=== PATIENT | female | born 1975 | race Caucasian/White ===

== ENCOUNTER 2025-01-03 16:53 | Observation (INO) | payer OTHER, SELFPAY ==
[2025-01-03 12:38] VITALS: BP 148/84
[2025-01-03 13:06] LABS: Hematocrit 35.3 % (37.0-47.0); Hemoglobin 12.0 g/dL (12.0-16.0); Mean Corp Hgb Conc. 34.0 g/dL (33.0-37.0); Mean Corpuscular Volume 90.1 fL (81.0-99.0); Nucleated Red Blood Cells % 0 %; Platelet Count 222 10^3/uL (130-400); Red Cell Dist. Width 12.4 % (11.5-14.5)
[2025-01-03 13:29] LABS: HCG, Serum Qualitative Screen Negative
[2025-01-03 13:31] LABS: Troponin I 0.050 ng/ml
[2025-01-03 13:39] LABS: ALT (SGPT) 12 U/L (0-35); AST (SGOT) 19 U/L (14-36); Albumin 4.3 g/dl (3.5-5.0); Alkaline Phosphatase 80 U/L (38-126); Blood Urea Nitrogen 10 mg/dl (7-17); Calcium 9.7 mg/dl (8.4-10.2); Carbon Dioxide 26 mmol/L (22-30); Chloride 106 mmol/L (98-107); Glucose 113 mg/dl (70-99); Lipase 77 U/L (23-300); Potassium 4.1 mmol/L (3.5-5.1); Sodium 138 mmol/L (135-145); Total Protein 7.1 g/dl (6.3-8.2); eGFR > 60.00
--- NOTE | 2025-01-03 13:44 | ED.GENMED ---
History of Present Illness
General
Chief Complaint: Abdominal Pain
Source: patient
Exam Limitations: none
Time Seen by Provider: 01/03/25 13:42
History of Present Illness
History of Present Illness:
49yoF with no significant past medical history presenting for evaluation of abdominal pain. Patient reports generalized abdominal pain for the past 2 days. Pain is described as a 'tender and bloated' feeling. Pain is worse with standing and
ambulation. She is also having nausea and chills. She denies any fevers, vomiting, diarrhea, constipation, dysuria, chest pain, shortness of breath. She is currently on her menstrual period. No previous abdominal surgeries.
Phy Exam
General Physical Exam
General Presentation: well appearing and no apparent distress
General Skin: warm and dry
General Habitus: normal
General Mental: alert
ENT Exam
ENT Exam: normocephalic
Cardiovascular Exam
Cardiovascular Exam: regular rate/rhythm
Pulmonary Exam
Pulmonary Exam: lungs clear, no respiratory distress, no rales, no crackles and no rhonchi
Gastrointestinal Exam
Gastrointestinal Exam: soft, non distended and other (+Mild generalized abdominal tenderness, worse in the LLQ. Abdomen soft, non-distended. No rebound or guarding.)
Neurological Exam
Neurological Exam: alert
[place] Coma Scale
Eye Opening: Spontaneous
Verbal Response: Oriented
Motor Response: Obeys Commands
GCS Total Score: 15
Skin Exam
Skin Exam: normal color and warm/dry
Psychiatric Exam
Psychiatric Exam: normal mood/affect
Course
Orders/Labs/Results
Orders:
Orders
01/03/25 12:42
ECG [Electrocardiogram (*1)] Urgent
Reason for Study: Abdominal Pain
Other Reason for Exam: abdominal pain, L arm pain
EKG- Treatment ONCE
Test Result ONCE
01/03/25 12:54
Complete Blood Count/With Diff Urgent
Comprehensive Metabolic Panel Urgent
HCG, Serum Qualitative Screen Urgent
Lipase Urgent
Troponin I Urgent
01/03/25 13:54
CT Abd/pelvis W Iv Cont Urgent
Comment:
Reason For Exam: generalized abd pain, LLQ pain
Cardiac Monitoring- Treatment ONCE
01/03/25 13:55
EKG- Treatment ONCE
01/03/25 14:39
Urinalysis Reflex To Culture Urgent
Date Specimen was Collected: 01/03/25
Time Specimen was Collected: 14:36
Urine Microscopic Reflex Cult Urgent
Urine Culture Urgent
KENDRA Source: U
Specimen Description:
Date Specimen was Collected: 01/03/25
Time Specimen was Collected: 14:36
01/03/25 15:27
Ketorolac [Toradol] 15 mg IV NOW STA
01/03/25 16:00
Electrocardiogram (*1) Urgent
Reason for Study: Abdominal Pain
01/03/25 16:01
Troponin I Urgent
01/03/25 16:25
Admit/Transfer Patient As Directed
Co-Sign Provider:
Level of Care: Observation services
Assign to:: Telemetry
Physician / Group: [facility]
Diagnosis: abdominal pain
Reason for Telemetry: Chest Pain syndromes
Date to Stop Telemetry: 01/05/25
Time to Stop Telemetry: 11:00
01/03/25 16:26
Code Status As Directed
Resuscitation Status: Full Code
PRN Pain Medication Management As Directed
May give lesser potent ordered pain med per pt: Yes
preference::
Protocol:: Medication orders for pain may be administered in a
manner that supports deferring to patient preference
when the pt is:
- Requesting an ordered lesser potent pain medication.
Least to most potent pain medications are defined
as: acetaminophen < NSAID < tramadol < opioids
(morphine, oxycodone, hydromorphone).
- Requesting a lesser dose of the same medication IF
ORDERED.
- Requesting a less intrusive route of administration
if both routes are prescribed by the provider (PO <
IV).
01/05/25 11:00
DC Protocol for Telemetry ONCE
Abnormal Lab Results
01/03/25 01/03/25
12:54 14:39
RBC 3.92 L 10^6/uL
(4.20-5.40)
Hct 35.3 L %
(37.0-47.0)
Lymphocytes % 19.7 L %
(20.5-51.1)
Glucose 113 H mg/dl
(70-99)
Troponin I 0.050 H* ng/ml
Ur Occult Blood Reflex 4+ A
(Negative)
Leukocyte Esterase Rfl 1+ A
(Negative)
Urine Bacteria (Reflex) Few A
(Negative)
01/03/25 12:54
01/03/25 12:54
Vital Signs
Initial and Last Documented VS:
Initial Vital Signs
Temp Pulse Resp BP Pulse Ox
98.5 F 80 16 148/84 98
01/03/25 12:38 01/03/25 12:38 01/03/25 12:38 01/03/25 12:38 01/03/25 12:38
Last Documented Vital Signs
Temp Pulse Resp BP Pulse Ox
98.5 F 67 18 124/90 95
01/03/25 12:38 01/03/25 16:00 01/03/25 16:00 01/03/25 16:00 01/03/25 16:00
MDM/Problems Addressed
Differential Diagnosis Includes:
49yoF here with abd pain x 2 days. Associated with nausea. VSS. She is well appearing in no distress. No signs of peritonitis on abdominal exam. Differential diagnosis includes but is not limited to: colitis, diverticulitis, constipation, kidney
stone, gastritis, biliary colic, nonspecific abdominal pain
Initial ED plan: Workup initiated in triage. White count, renal function, LFTs, lipase normal. HCG negative. Troponin is elevated at 0.05. EKG shows NSR without ischemic changes. She has no chest pain or shortness of breath although does report
intermittent L arm pain. Will check UA, delta troponin/EKG, and CT abdomen.
*Pulse Oximetry
SaO2: 98
Oxygen Mode of Delivery: Room air
Patient hypoxic: no
*EKG
Interpreted by ED Provider?: Yes
EKG Intrepretation Date: 01/03/25
Heart Rate: 73
Rate: normal
Rhythm: sinus
[place]: normal axis
Interval: normal interval
QRS Pattern: normal QRS
Ischemia: no ischemia
*Critical Care Note
Total Time (30-74mins, 75-104mins- exclusive of procedures): Not Applicable
Update Note
Update Note:
CT abdomen is negative for acute findings. 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 UA with 4+ blood consistent with her being on her menstrual period. No overt signs of infection noted. Will admit for further evaluation of
elevated troponin.
ED Attending Note
-
Portions of this chart may have been created with voice recognition software.� Occasional wrong word or��sound alike� substitutions may have occurred due to the inherent limitations of voice recognition software.
Discharge Plan
Departure
Patient Disposition: Admit
Date of Disposition: 01/03/25
Time of Disposition: 15:29
Presentation/result/management discussed w/ accepting MD/DO: Hospitalist
Discharge Problem:
Elevated troponin, Abdominal pain
Prescriptions:
No Action
ibuprofen [Advil] 200 mg Tablet
400 mg PO BIDPRN PRN (Reason: MILD PAIN)
Referrals:
Chandrika Last MD [Family Provider, Internal Medicine]
Interventions
Interventions:
*Risk Screen - Suicide Last Done: 01/03/25 13:58
*Neglect/Abuse Screening Last Done: 01/03/25 13:58
*ED- Fall Risk Assessment Last Done: 01/03/25 13:58
JN-Nydono-Qdkdhxzyvg Assessment Last Done: 01/03/25 13:59
Discharge Date and Time
Print Language: LITHUANIAN
[2025-01-03 13:46] VITALS: BP 136/83
[2025-01-03 13:57] VITALS: BMI 34.5
[2025-01-03 14:47] LABS: Urine Character Clear (Clear)
[2025-01-03 15:00] VITALS: BP 130/77
[2025-01-03 15:00] LABS: Urine Squamous Cell >30 /LPF (Few)
[2025-01-03 15:01] LABS: Urine Red Blood Cell 0-2 /HPF (0-2); Urine White Cell 0-2 /HPF (0-5)
[2025-01-03] MEDS: TORADOL 15 MG IV ×2 (15:43→21:59)
[2025-01-03 16:00] VITALS: BP 124/90
--- NOTE | 2025-01-03 16:06 | HPS.HSE ---
Addendum entered and electronically signed by Miguel Mcrae MD 01/03/25 19:23:
This is an addendum to H&P written by Michelle Owen on 01/03/25. 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
Will give 49-year-old female without past medical history presenting with lower abdominal pain worse for 2 days. �Presenting with nausea and chills. �No fever. �No diarrhea or constipation. �No chest pain.
Vital signs normal.
Labs show troponin 0.05 decreased to 0.019. �EKG shows normal sinus rhythm.
Urinalysis negative. �
CT abdomen pelvis showed no acute inflammatory process within the abdomen or pelvis. �Findings suggesting minor chronic mesenteric panniculitis. �Incidental small 1.8 cm left inguinal hernia containing fat, also mild linear soft tissue component
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
Patient with what appears to be abdominal pain secondary to mesenteric panniculitis. �Pain control with Toradol. �IV fluids. �Regular diet. �GI consulted. �Potentially require steroids.
Nonischemic myocardial injury secondary to inflammatory process. �Troponins trending down.
Original Note:
Family Physician
-
Family Physician: Chandrika Last MD
Chief Complaint
-
abdominal pain
History of Present Illness
49yoF with no significant past medical history presenting for evaluation of abdominal pain. patient stated lower abdominal pain which is worse on the right side of the abdomen for past two days. pain is worse with ambulation and laying down but
improves when sitting upright. she was taking ibuprofen with no relief in her symptoms. she is nauseous and has chills. denied vomiting, diarrhea or constipation. She denies any fevers, vomiting, dysuria, chest pain, shortness of breath. She is
currently on her menstrual period. she typically don't get pain with periods.
CT with Findings suggest minor chronic mesenteric panniculitis.No bowel obstruction. No obstructive uropathy.Incidental small, 1.8 cm left inguinal hernia predominantly containing fat, though there is also a mild linear soft tissue component
contiguous with the left broad ligament. This is felt to represent eventration of the parietal peritoneum (the canal of Nuck). No associated focal mass, cystic distention, or soft tissue infiltration.
she was also noted to have elevated trop.
she received Toradol in ER. admitting for further management.
Medical History
Past Medical History
Past Medical History: Reports None
Past Surgical History: Reports None
Social History
Tobacco: Non-smoker
Alcohol: Occasional
Drug: None
Personal:
Living: With Family
Family History
Family History: CAD (maternal grand father)
Allergies / Home Medications
Allergies reflects when Allergies were last updated in [facility].
Home Medications with original date entered in [facility]
Allergy/Medication List:
Allergies
Allergy/AdvReac Type Severity Reaction Status Date / Time
No Known Allergies Allergy Verified 01/03/25 13:43
Home Medications
ibuprofen 200 mg tablet (Advil) 400 mg PO BIDPRN PRN MILD PAIN 01/03/25
Review of Systems
-
Constitutional: Reports No Symptoms
EENT: Reports No Symptoms
Respiratory: Reports No Symptoms
Cardiac: Reports No Symptoms
Abdomen/GI: Reports Abdominal Pain and Nausea
: Reports No Symptoms
Musculoskeletal: Reports No Symptoms
Skin: Reports No Symptoms
Neurological: Reports No Symptoms
Endocrine: Reports No Symptoms
Hematologic/Lymphatic: Reports No Symptoms
Psych: Reports No Symptoms
Physical Exam
Vital Signs
Vital Signs
Temp Pulse Resp BP Pulse Ox
98.5 F 62 13 130/77 98
01/03/25 12:38 01/03/25 15:30 01/03/25 15:30 01/03/25 15:00 01/03/25 15:30
Physical Exam
General: Well Developed, Well Nourished and No Apparent Distress
HEENT: NormoCephalic, Moist mucous membranes and Atraumatic
Respiratory: Clear
Cardiac: S1/S2 and Regular Rhythm; No Murmur or Rub
GI: Soft, Non Tender, Non Distended and Normal Bowel Sounds; No Organomegaly
Rectal: Deferred by Provider
Musculoskeletal: No Clubbing, No Cyanosis and No Edema
Skin: No Rash
Neuro: AO x 3 and Nonfocal/grossly intact
Psych: Calm
Laboratory Results
-
01/03/25 12:54
01/03/25 12:54
Laboratory Results
Total Bilirubin 0.7 mg/dl (0.2-1.3) 01/03/25 12:54
AST 19 U/L (14-36) 01/03/25 12:54
ALT 12 U/L (0-35) 01/03/25 12:54
Alkaline Phosphatase 80 U/L (38-126) 01/03/25 12:54
Troponin I 0.050 ng/ml H* 01/03/25 12:54
Lipase 77 U/L (23-300) 01/03/25 12:54
Data Reviewed
-
CT Scan: Report Reviewed by me
Lab Data: Labs Reviewed by me
Impression/Plan
-
# Generalized abdominal pain and nausea likely mesenteric panniculitis.
- CT abdomen pelvis with impression of no acute inflammatory process within the abdomen or pelvis. Findings suggest minor chronic mesenteric panniculitis.No bowel obstruction. No obstructive uropathy.
-Tylenol, Zofran for pain,nausea and vomiting
-Toradol prn for pain
-fluids
-GI consulted
#elevated trop likely demand ischemia
-trop 0.050, trend trop
- EKG with normal sinus rhythm
-ctm
# Incidental finding of inguinal hernia
- CT with impression of Incidental small, 1.8 cm left inguinal hernia predominantly containing fat, though there is also a mild linear soft tissue component contiguous with the left broad ligament. This is felt to represent eventration of the
parietal peritoneum (the canal of [place]uck). No associated focal mass, cystic distention, or soft tissue infiltration.
#DVT prophylaxis
-Lovenox
#CODE status
-full code
[2025-01-03 16:56] LABS: Troponin I 0.019 ng/ml
--- NOTE | 2025-01-03 19:10 | PTCARENOTE ---
Pt admitted to 2105 from ED. Pt ambulated from stretcher to bed. AAOx3, c/o b/l lower abdominal pain. SB/SR on tele. VSS. Call anthony within reach.
[2025-01-03 19:13] VITALS: BMI 34.0
[2025-01-03 19:30] VITALS: BP 152/87
[2025-01-03] MEDS: NSS 1000 IV (20:08)
[2025-01-03] MEDS: LOVENOX 40 MG SC (20:12)
[2025-01-03] MEDS: TYLENOL 650 MG PO (20:28)
[2025-01-03 23:00] VITALS: BP 127/69
[2025-01-04 02:47] VITALS: BP 125/60
[2025-01-04] MEDS: TORADOL 15 MG IV (04:13)
[2025-01-04 06:51] VITALS: BP 117/69
--- NOTE | 2025-01-04 07:24 | W.PN.HOSP.TC ---
Addendum entered and electronically signed by Finn Estrada MD 01/04/25 21:45:
Attending Addendum:
I saw and evaluated the patient. I reviewed the resident�s note and agree with findings and plan as documented in the resident�s note. Sub: Feels improved tolerating diet. No N/V abd pain. Seen with present. Full 12 point ROS reviewed and
negative except as documented Exam: Vitals reviewed in chart GEN-NAD heart RRR lungs clear abd mild ttp lower bad no rebound guarding LE no edema
# Generalized abdominal pain and nausea possibly mesenteric panniculitis.
- CT abdomen pelvis with impression of no acute inflammatory process within the abdomen or pelvis. Findings suggest minor chronic mesenteric panniculitis.No bowel obstruction. No obstructive uropathy.
-Tylenol, Zofran for pain,nausea and vomiting
-Toradol ineffective
-PO steroid burst on DC
-start PPI
-GI input appreciated
#NIMI
-trop trending down
-EKG with normal sinus rhythm
# Incidental finding of inguinal hernia
- CT with impression of Incidental small, 1.8 cm left inguinal hernia predominantly containing fat, though there is also a mild linear soft tissue component contiguous with the left broad ligament. This is felt to represent eventration of the
parietal peritoneum (the canal of [place]uck). No associated focal mass, cystic distention, or soft tissue infiltration.
#DVT prophylaxis
-Lovenox
#CODE status
-full code
Dispo DC home
Time spent coordinating care, DC planning, review of DC plan of care with resident, transition of care, review of records, med rec/scripts sent electronically, consults, notes, d/w consultants, nursing, family, and CM� 31 mins >50% of this time was
devoted to counseling and coordination of care
Original Note:
Today's Communication/Plan
-
Discharge planning
Assessment / Plan
Assessment / Plan
Assessment:
Plan:
#Generalized abdominal pain with nausea
-Likely secondary to minor chronic mesenteric panniculitis noted on CT scan
-GI had been consulted on admission, will appreciate their insight into this case
-She had been taking a fairly low amount of ibuprofen (400mg) outpatient. Would recommend increasing and scheduling this upon discharge for pain control
-Will plan to discharge her on zofran and oral PPI
-Consider short steroid taper as well on discharge for inflammation
-Will monitor
#Elevated Troponins - Resolved
-Initially noted in the ED, returned to normal same day
#Inguinal Hernia
-Incidental finding on CT scan
#Misc
-As noted by pharmacy, patient had previously been taking fluoxetine 10mg daily, last filled earlier this year. Will check in with patient about if she would
Anticipated Discharge: Today
Subjective/Interval History
-
Date of Service: January 04, 2025
Patient was sitting comfortably in bed when I arrived. She continues to experience aching abdominal pain mainly in the lower midline pelvic region, which also radiates up around the right side of her abdomen. It is improved compared to when she came
in. She states that she ate a muffin this morning with no change in her symptoms, but when she drank a latte it increased her pain. She reports this also happened yesterday when she ate a grilled cheese. She is not currently nauseous, and has been
free of diarrhea or constipation. She was worried that her symptoms could be due to an ulcer or stress, as this last year has been very stressful for her. She has never had any symptoms like this happen to her before. She reports generally being
very healthy and only takes ibuprofen for menstruation pain.
Objective Data
-
Vital Signs:
Vital Signs
Temp Pulse Resp BP Pulse Ox
97.9 F 57 16 117/69 98
01/04/25 06:51 01/04/25 06:51 01/04/25 06:51 01/04/25 06:51 01/04/25 06:51
I&O
01/03/25 01/04/25 01/05/25
06:59 06:59 06:59
Intake Total 1360 / 1360
Balance 1360 / 1360
Review of Systems
-
History Source: Patient
Constitutional: Denies Fever or Chills
Respiratory: Denies Cough or Trouble Breathing
Cardiac: Denies Chest Pain
Abdomen/GI: Reports Abdominal Pain and Indigestion; Denies Nausea, Vomiting, Diarrhea, Constipated or Bloated
Musculoskeletal: Denies Joint Pain
Skin: Denies Itching
Neuro: Denies Dizzy, Headache, Weakness, Numbness or Lightheadedness
Hematologic / Lymphatic: Denies Bleeding
Physical Exam
-
General: Well Developed, Well Nourished, No Apparent Distress and Comfortable
HEENT: Normocephalic and Atraumatic
Respiratory: Clear to Auscultation
Cardiac: Regular Rhythm and S1/S2
GI: Soft, Nondistended, Normal Bowel Sounds and Tender (Reported tenderness to moderate palpation of the midline pelvis. No guarding.)
Musculoskeletal: No Edema
Skin: Warm and Dry
Neuro: Awake, Alert and Oriented
Psych: Calm and Intact Judgement/Insight
[2025-01-04] MEDS: TYLENOL 650 MG PO (07:41)
[2025-01-04] MEDS: NSS 1000 IV (09:27)
--- NOTE | 2025-01-04 10:07 | CM ---
Addendum entered by Liz Ramachandran 01/04/25 14:42:
discharge today
PLAN: Home, no needs
mom/boyfriend to transport
Original Note:
Patient seen at bedside with mom & boyfriend
IA completed
OBS status - OBS form explained & signed. In chart
Patient lives with her 3 children (19,16,11) in a 2 story home, [address], flight to bed/bath
PLOF: independent, drives
Denies DME
Denies VN/Rehab
PCP: Dr. Last, [facility], [facility]
Pharmacy: [facility], [facility]
PLAN: Home, no needs when stable
mom/boyfriend to transport
[2025-01-04 11:00] VITALS: BP 107/71
--- NOTE | 2025-01-04 11:27 | CON.GI ---
Addendum entered and electronically signed by Paola Briseno Do, MD 01/04/25 15:28:
I saw and evaluated the patient. I reviewed the resident�s note and agree with findings and plan as documented in the resident�s note.
Vilma is a 49yo W with little past medical history who was admitted for abd pain for past 2 days. She was at [employer] and ate more with some ETOH intake. There is heartburn reflux and indigestion. She denies weight loss, nausea/vomiting,
diarrhea constipation or jaundice. Vitals stable. Exam obese non distended non TTP. NABS. Labs reviewed. CT reviewed
Impression
- Abd pain now resolved
Suspect GERD dyspepsia
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
Nonspecific, she does not meet high risk criteria
- Obesity
- H/o wisdom teeth removal
Recommendations
- Adv to regular diet
- Recommend PPI daily basis
- Would benefit from OP colonoscopy for age appropriate screening and EGD if abd pain recurs
- Repeat CT in 6mo for follow up on mesenteric panniculitis. If does not resolve can consider bx at that time.
GI will sign off please call for ?
Recommendations
Original Note:
Consultation
-
Date/Time Consultation Requested: 01/03/2025
Date/Time Consultation Performed: 01/04/2025
Requesting Provider: Michelle Owen
Performing Provider: Aliza Muse MD; Mauro Ramos MD
Reason for Consultation: abdominal pain
Medical History
Chief Complaint / HPI
Chief Complaint: abdominal pain
History of Present Illness:
49 yo F no significant PMH p/w abdominal pain for x2 days duration.
Mainly a dull ache near lower pelvic region does not radiate. Then, she experienced more severe pain just superior to umbilical area that she described as more burning, which prompted her to present to ED. She also reported some heartburn while
these symptoms were ongoing.
The pain started in the setting of her attending a [employer] festival with increased EtOH intake this past Friday.
She denies any vomiting or changes in bowel habits. No blood in stool.
She does report that she is currently on her menstrual cycle, but denies that this pain occurred before and denies any pain in relationship to prior menstrual cycles.
During the admission, she is able to tolerate some food and feels that the pain is resolving.
She denies any fevers, chills, or weight loss.
PSHx: wisdom teeth extraction ~30 years ago
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
Past Medical History
Past Medical History: None
Past Surgical History: Other (wisdom teeth)
Social History
Tobacco: Non-Smoker
Alcohol: Occasional
Drug: None
Personal: Partner
Living: With Family
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
Family History
Family History: CAD
Allergies / Home Medications
Allergy/AdvReac Type Severity Reaction Status Date / Time
No Known Allergies Allergy Verified 01/03/25 13:43
�Medication �Instructions �Recorded
ibuprofen 200 mg tablet (Advil) 400 mg PO BIDPRN PRN MILD PAIN 01/03/25
Review of Systems
-
History Source: Patient
Constitutional: Reports No Symptoms
EENT: Reports No Symptoms
Respiratory: Reports No Symptoms
Cardiac: Reports No Symptoms
Abdomen/GI: Reports Abdominal Pain, Nausea and Other (heartburn)
: Reports No Symptoms
Musculoskeletal: Reports No Symptoms
Neurological: Reports No Symptoms
Vital Signs
Temp Pulse Resp BP Pulse Ox
97.9 F 57 16 117/69 98
01/04/25 06:51 01/04/25 06:51 01/04/25 06:51 01/04/25 06:51 01/04/25 06:51
Physical Exam
Exam
General: No Apparent Distress
HEENT: Normocephalic and Anicteric
Respiratory: Clear
Cardiac: Regular Rhythm and Murmur (no murmurs on my exam)
GI: Soft, Normal Bowel Sounds, Tender (some tenderness to palpation along RLQ, LLQ) and Other (no peritoneal signs on my exam)
Genito-urinary: No Costovertebral Tender
Musculoskeletal: No Edema
Neuro: AO x 3 and No Motor Deficits
Results
VS:
117/69; HR 57; RR 16; T 97.9; SpO2 98%
WBC 6.6 10^3/uL (4.8-10.8) 01/03/25 12:54
Hgb 12.0 g/dL (12.0-16.0) 01/03/25 12:54
Hct 35.3 % (37.0-47.0) L 01/03/25 12:54
MCV 90.1 fL (81.0-99.0) 01/03/25 12:54
Plt Count 222 10^3/uL (130-400) 01/03/25 12:54
Absolute Neuts (auto) 4.8 10^3/uL (1.4-6.5) 01/03/25 12:54
Sodium 138 mmol/L (135-145) 01/03/25 12:54
Potassium 4.1 mmol/L (3.5-5.1) 01/03/25 12:54
Chloride 106 mmol/L (98-107) 01/03/25 12:54
Carbon Dioxide 26 mmol/L (22-30) 01/03/25 12:54
BUN 10 mg/dl (7-17) 01/03/25 12:54
Creatinine 0.7 mg/dL (0.6-1.0) 01/03/25 12:54
Calcium 9.7 mg/dl (8.4-10.2) 01/03/25 12:54
Total Bilirubin 0.7 mg/dl (0.2-1.3) 01/03/25 12:54
AST 19 U/L (14-36) 01/03/25 12:54
ALT 12 U/L (0-35) 01/03/25 12:54
Alkaline Phosphatase 80 U/L (38-126) 01/03/25 12:54
Lipase 77 U/L (23-300) 01/03/25 12:54
HcG test: negative
Diagnostic Image Results:
CT Abdomen/Pelvis w IV contrast 01/03/2025
IMPRESSION:
No acute inflammatory process within the abdomen or pelvis. Findings suggest minor chronic mesenteric panniculitis.
No bowel obstruction. No obstructive uropathy.
Incidental small, 1.8 cm left inguinal hernia predominantly containing fat, though there is also a mild linear soft tissue component contiguous with the left broad ligament. This is felt to represent eventration of the parietal peritoneum (the canal
of [place]uck). No associated focal mass, cystic distention, or soft tissue infiltration.
Prior GI Procedures:
None seen on chart
Assessment / Plan
-
In summary, 49 yo F p/w lower abdominal pain that occurred in the setting increased PO intake and EtOH use of burning character that is currently most concerning for dyspepsia.
# Dyspepsia & Abdominal pain
- pain of burning character; she endorsed heart burn; occurred in setting of consuming large meals (lobster) with EtOH
- reassuringly, no constitutional symptoms (fevers, chills, or weight loss) that would be more concerning
- her pain has improved during her admission
- The differential for dyspepsia and abdominal pain in the mid-upper and lower quadrants is broad and can include peptic ulcer disease, gastroesophageal reflux, malignancy, pancreatitis (lipase is normal), appendicitis (no evidence on CT A/P) among
others.
- etiologies can also be considered but test was negative. She also denied any urinary symptoms or changes in urinary habits.
- CT AP disclosed possibly minor chronic mesenteric panniculitis. Per review of [facility] most recent clinical practice update on sclerosing mesenteritis (Cheryl et al., 2024), there does not seem to a secondary cause of mesenteric panniculitis for
this patient.
- In addition, the radiologic criteria on Figure 2 of the referenced publication do not seem to be met at this time, which is reassuring against an insidious process.
- During the admission, she is tolerating diet (muffin, tea) well and reports that she feels the pain is resolving. She is on regular diet.
- For these reasons, it is likely appropriate to follow-up in an outpatient setting with a repeat CT AP in 6 months at that time to assess for symptoms and radiologic presentation.
- For symptomatic relief, consider famotidine 20mg twice daily for 1-2 weeks
Plan:
- Recommendations are not final until discussed with Dr. Muse, GI attg
- consider famotidine 20mg twice daily for 1-2 weeks for symptomatic relief
- genetic counsellor patient to start with a relatively blander diet and then work her way to her typical diet.
- genetic counsellor patient to try to sleep >2 hours after last meal, and to use elevated head of bed
- would recommend completely avoiding or reducing EtOH use
- outpatient GI follow-up with Dr. Muse if there is a role for EGD at that time and possible repeat CT A/P as outpatient
-
-
Thank you for consultation and allowing me to participate in the patient's care. Please call the monkey trainer GI physician during the after hours with any questions or concerns.
[2025-01-04 14:49] VITALS: BP 150/87
--- NOTE | 2025-01-04 14:51 | W.DCSUMMARY ---
Addendum entered and electronically signed by Finn Estrada MD 01/04/25 21:46:
Read, reviewed, and agree. See same day progress note for additional details.
Neal Estrada MD
Original Note:
Documented by User: Pattie Mcclalum DO, Resident 01/04/25 14:54
Discharge Summary
Discharge Data
Date of Admission: 01/03/25
Date of Discharge: 01/04/25
-
Pending Results: No
Hospital Course
Discharging Physician : Finn Estrada MD
Disposition : Good
Primary care physician : Chandrika Last MD
Principal Discharge diagnosis : Minor chronic mesenteric panniculitis
Chronic Discharge diagnosis : None
Hospital Course :
This is a 49 y/o with no significant known pmhx who presented to the ED on 01/03/2025 with abdominal pain worse on the right lower quadrant that began 2 days prior. This was accompanied by nausea and chills, but she has been free of diarrhea and
fevers. Of note, she was currently menstruating.
In the ED, her WBC was normal at 6.6 and her hemoglobin was normal at 12.0. Aside from an elevated (non-fasting) glucose, her CMP was within normal limits. Her troponin were elevated at 0.050. Four hours later, they had decreased to normal at 0.019.
HCG was negative. Lipase was within normal limits. UA was positive for 4+ occult blood, 1+ leukocytes, and few bacteria. Urine culture is pending. EKG showed normal sinus rhythm. CT scan of the abdomen/pelvis showed no acute inflammatory process
within, but findings were suggestive of minor chronic mesenteric panniculitis. No bowel obstruction or obstructive uropathy. There was an incidental, small, 1.8cm left inguinal hernia predominantly containing fat, though there is also a mild linear
soft tissue component contiguous with the left broad ligament. She was given Toradol and Zofran, GI was consulted, and she was admitted to the hospital for further management. She remained stable overnight and into the next day with improvement in
her pain
Important imaging findings : CT scan of the abdomen/pelvis showed no acute inflammatory process within, but findings were suggestive of minor chronic mesenteric panniculitis. No bowel obstruction or obstructive uropathy.
Procedure findings : N/a
Discharge Plan
-
Patient Disposition: Home (Routine Discharge)
Discharge Diagnosis/Procedures: Chronic mesenteric panniculitis
Condition: Good
Diet: No restrictions
Activity: No restrictions
Driving Restrictions: As prior to admission
Bathing Restrictions: None
Referrals:
Chandrika Last MD [Family Provider, Internal Medicine] - in less than 1 week
Prescriptions:
New
ondansetron 4 mg tablet,disintegrating
4 mg PO Q8H PRN (Reason: nausea and vomiting) Qty: 12 0RF
prednisone 50 mg tablet
50 mg PO DAILY Qty: 5 0RF
pantoprazole 20 mg tablet,delayed release (DR/EC)
20 mg PO DAILY Qty: 30 0RF
Changed
ibuprofen [Advil] 200 mg Tablet
600 mg PO QID Qty: 0 0RF
Discharge Orders:
Discharge Patient (As Directed); Ordered 01/04/25
Ordered By: Pattie Mccallum
Discharge Date and Time
Discharge Date/Time: 01/04/25 15:10
Print Language: CHINESE

Documented by User: Finn Estrada MD 01/04/25 21:41
Discharge Summary
Discharge Data
Date of Admission: 01/03/25
Date of Discharge: 01/04/25
Discharge Plan
-
Patient Disposition: Home (Routine Discharge)
Discharge Diagnosis/Procedures: Chronic mesenteric panniculitis
Condition: Good
Diet: No restrictions
Activity: No restrictions
Driving Restrictions: As prior to admission
Bathing Restrictions: None
Referrals:
Chandrika Last MD [Family Provider, Internal Medicine] - in less than 1 week
Prescriptions:
New
ondansetron 4 mg tablet,disintegrating
4 mg PO Q8H PRN (Reason: nausea and vomiting) Qty: 12 0RF
prednisone 50 mg tablet
50 mg PO DAILY Qty: 5 0RF
pantoprazole 20 mg tablet,delayed release (DR/EC)
20 mg PO DAILY Qty: 30 0RF
Changed
ibuprofen [Advil] 200 mg Tablet
600 mg PO QID Qty: 0 0RF
Discharge Orders:
Discharge Patient (As Directed); Ordered 01/04/25
Ordered By: Pattie Mccallum
Discharge Date and Time
Discharge Date/Time: 01/04/25 15:10
Print Language: CHINESE
[2025-01-04 15:08] VITALS: BP 135/89
== END 2025-01-04 15:10 | disposition home or self-care (01) ==
LOC: 2 SOUTH 16:53
PROVIDERS: Emergency Medicine; Physician Assistant; ADMITTING PHYSICIAN Hospitalist; ATTENDING PHYSICIAN Family Medicine; CONSULT PHYSICIAN Internal Medicine Gastroenterology; EMERGENCY PHYSICIAN Emergency Medicine; FAMILY PHYSICIAN Student in an Organized Health Care Education/Training Program
DX: K65.4 Sclerosing mesenteritis (principal); I5A Non-ischemic myocardial injury (non-traumatic); K40.90 Unilateral inguinal hernia, without obstruction or gangrene, not specified as recurrent; E66.9 Obesity, unspecified
CPT/HCPCS: 74177; 80053; 81003; 81015; 83690; 84484; 84703; 85025; 87086; 93005; 96374; 99285; G0378; Q9967